=== PATIENT | male | born 1995 | race African-American/Black ===

== ENCOUNTER 2016-08-19 07:37 | Emergency (ER) | payer OTHER ==
[~2016-08-19] VITALS: Ht 167.6 cm; Wt 68.3 kg
[~2016-08-19 07:37] MED LIST: FLEXERIL10 MG PO; LEVAQUIN500 MG PO; MEDROL DOSEPAK4 MG PO; MOTRIN600 MG PO; NAPROSYN500 MG PO; NAPROXEN500 MG PO; NEBULIZER IH; NO MED; NORCO 5/3251 TABLET PO; PREDNISONE20 MG PO; PROAIR HFA8.5 GM IH; PROMETHAZINE HC25 M1 PO; VALIUM5 MG PO; VENTOLIN HFA18 GM IH; ZITHROMAX Z-PA250 MG PO; ZOFRAN ODT8 MG PO; ZOFRAN4 MG PO
[2016-08-19 09:55] LABS: EOSINOPHIL (%) 0 % (0-5); HEMATOCRIT 37.8 % (38.0-50.0); IMMATURE GRANULOCYTE (%) 0.2 % (0.0-0.7); IMMATURE GRANULOCYTE COUNT 0.1 K/uL; LYMPHOCYTE COUNT 0.6 K/uL (1.0-2.8); MCH 28.9 PG (29.0-34.0); MCHC 34.7 G/DL (30.0-36.0); MCV 83.3 FL (86-99); MEAN PLAT.VOLUME 9.8 uM^3 (9.0-12.4); MONOCYTE (%) 18.8 % (3-12); NEUTROPHIL (%) 70.9 % (45-76); NEUTROPHIL COUNT 3.9 K/uL (1.8-6.4); PLATELET COUNT 165 K/uL (156-360); RBC DIS.WIDTH-CV 13.1 % (11.8-14.6); RBC DIS.WIDTH-SD 39.2 % (39-53); RED BLOOD COUNT 4.54 M/uL (4.00-5.50); WHITE BLOOD COUNT 5.5 K/uL (4.1-10.2)
[2016-08-19 10:05] LABS: CHLORIDE 108 mEq/L (99-109)
[2016-08-19 10:06] LABS: POTASSIUM 3.4 mEq/L (3.7-5.4); SODIUM 140 mEq/L (136-147)
[2016-08-19 10:07] LABS: GLUCOSE 94 mg/dL (70-99)
[2016-08-19 10:09] LABS: ANION GAP 14 MEQ/L (2-14)
[2016-08-19 10:11] LABS: GFR ESTIMATE (CALCULATED) > 59 mL/min/
[2016-08-19 10:12] LABS: UREA NITROGEN (BUN) 10 mg/dL (9-23)
[2016-08-19 11:14] LABS: ADD MIUA? YES; BILIRUBIN NEGATIVE; BLOOD NEGATIVE; COLOR YELLOW ((YELLOW)); GLUCOSE (STRIP) NEGATIVE; KETONES 80; LEUKOCYTES NEGATIVE; NITRITE NEGATIVE; PROTEIN (STRIP) 30; SPECIFIC GRAVITY 1.029 (1.000-1.030); UROBILINOGEN 0.2 MG/DL (0.2-1.0)
[2016-08-19 11:26] LABS: BACTERIA RARE /HPF; EPITHELIAL CELLS RARE /HPF; MUCUS 2+ /LPF; RED BLOOD CELLS NONE SEEN /HPF (0-5); UCUL ADDED? NO; WHITE BLOOD CELLS 0-5 /HPF (0-5)
[2016-08-19 11:48] VITALS: BP 117/87
[2016-08-19] MEDS ORDERED: MOTRIN600 MG PO (12:16)
[2016-08-19] MEDS ORDERED: LIDOCAINE700 MG TD (12:16)
[2016-08-19] MEDS ORDERED: FLEXERIL10 MG PO (12:16)
== END 2016-08-19 12:32 | disposition home or self-care (01) ==
LOC: EME 07:37
PROVIDERS: Emergency Medicine
DX: M54.16 Radiculopathy, lumbar region (principal); M25.561 Pain in right knee; M25.562 Pain in left knee; J45.909 Unspecified asthma, uncomplicated
CPT/HCPCS: 72131; 73564; 80048; 81003; 85025; 99281; 99285; J1100; J1885; J7030

== ENCOUNTER 2017-06-04 18:52 | Emergency (ER) | payer OTHER ==
[~2017-06-04] VITALS: Ht 167.6 cm; Wt 68.6 kg
[~2017-06-04 18:52] MED LIST changes: +LIDOCAINE700 MG TD
[2017-06-04 19:17] LABS: HEMATOCRIT 42.4 % (38.0-50.0); MCH 29.6 PG (29.0-34.0); MCHC 35.4 G/DL (30.0-36.0); MCV 83.8 FL (86-99); MEAN PLAT.VOLUME 10.5 uM^3 (9.0-12.4); PLATELET COUNT 194 K/uL (156-360); RBC DIS.WIDTH-CV 12.6 % (11.8-14.6); RED BLOOD COUNT 5.06 M/uL (4.00-5.50)
[2017-06-04 19:26] LABS: CHLORIDE 105 mEq/L (99-109); POTASSIUM 3.2 mEq/L (3.7-5.4); SODIUM 140 mEq/L (136-147)
[2017-06-04 19:27] LABS: GLUCOSE 95 mg/dL (70-99)
[2017-06-04 19:29] LABS: ANION GAP 17 MEQ/L (2-14)
[2017-06-04 19:31] LABS: GFR ESTIMATE (CALCULATED) > 59 mL/min/
[2017-06-04 19:32] LABS: UREA NITROGEN (BUN) 9 mg/dL (9-23)
[2017-06-04 19:37] LABS: TROP-I INTERPRETATION NEGATIVE; TROPONIN-I < 0.01 ng/mL (0.0-0.30)
[2017-06-04 23:19] LABS: ADD MIUA? YES; BILIRUBIN NEGATIVE; BLOOD NEGATIVE; COLOR YELLOW ((YELLOW)); GLUCOSE (STRIP) NEGATIVE; KETONES 80; LEUKOCYTES NEGATIVE; NITRITE NEGATIVE; PROTEIN (STRIP) 100; SPECIFIC GRAVITY 1.031 (1.000-1.030)
[2017-06-04 23:26] LABS: BACTERIA NONE SEEN /HPF; EPITHELIAL CELLS RARE /HPF; MUCUS 2+ /LPF; WHITE BLOOD CELLS 0-5 /HPF (0-5)
[2017-06-04] MEDS ORDERED: VIBRAMYCIN100 MG PO (23:41)
[2017-06-04] MEDS ORDERED: TYLENOL WITH C1 EACH PO (23:41)
[2017-06-04] MEDS ORDERED: MOTRIN800 MG PO (23:41)
[2017-06-05 00:23] VITALS: BP 127/63
== END 2017-06-05 00:24 | disposition home or self-care (01) ==
LOC: EME 18:52
PROVIDERS: Emergency Medicine
DX: R50.9 Fever, unspecified (principal); J45.909 Unspecified asthma, uncomplicated
CPT/HCPCS: 71020; 80048; 81003; 83605; 84484; 85027; 87040; 87502; 93005; 99281; 99285; J2270

== ENCOUNTER 2017-08-31 10:39 | Emergency (ER) | payer OTHER ==
[~2017-08-31] VITALS: Ht 167.6 cm; Wt 72.7 kg
[~2017-08-31 10:39] MED LIST changes: +MOTRIN800 MG PO; +TYLENOL WITH C1 EACH PO; +VIBRAMYCIN100 MG PO
[2017-08-31 12:14] LABS: BASOPHIL (%) 0.1 % (0-1); EOSINOPHIL (%) 0 % (0-5); HEMATOCRIT 40.2 % (38.0-50.0); IMMATURE GRANULOCYTE (%) 0.3 % (0.0-0.7); LYMPHOCYTE (%) 5.1 % (15-42); LYMPHOCYTE COUNT 0.6 K/uL (1.0-2.8); MCH 29.2 PG (29.0-34.0); MCHC 34.8 G/DL (30.0-36.0); MCV 83.8 FL (86-99); NEUTROPHIL (%) 85.5 % (45-76); NEUTROPHIL COUNT 9.5 K/uL (1.8-6.4); PLATELET COUNT 169 K/uL (156-360); RBC DIS.WIDTH-CV 12.9 % (11.8-14.6); RBC DIS.WIDTH-SD 39.4 % (39-53); WHITE BLOOD COUNT 11.1 K/uL (4.1-10.2)
[2017-08-31 12:21] LABS: ALBUMIN 4.7 g/dL (3.2-4.8)
[2017-08-31 12:22] LABS: CHLORIDE 107 mEq/L (99-109); POTASSIUM 3.3 mEq/L (3.7-5.4); SODIUM 140 mEq/L (136-147)
[2017-08-31 12:24] LABS: GLUCOSE 153 mg/dL (70-99); TOTAL PROTEIN 7.4 g/dL (6.4-8.3)
[2017-08-31 12:26] LABS: TOTAL BILIRUBIN 0.9 mg/dL (0.0-1.0)
[2017-08-31 12:27] LABS: ALKALINE PHOSPHATASE 68 IU/L (3-129)
[2017-08-31 12:28] LABS: GFR ESTIMATE (CALCULATED) > 59 mL/min/ (58.99-99999)
[2017-08-31 12:29] LABS: AST (GOT) 16 IU/L (2-34); UREA NITROGEN (BUN) 11 mg/dL (9-23)
[2017-08-31 12:30] LABS: ALT (GPT) 24 IU/L (3-49)
[2017-08-31 14:35] LABS: APPEARANCE SL.HAZY ((CLEAR)); BILIRUBIN NEGATIVE; BLOOD NEGATIVE; COLOR YELLOW ((YELLOW)); GLUCOSE (STRIP) 50; KETONES 20; LEUKOCYTES NEGATIVE; NITRITE NEGATIVE; PROTEIN (STRIP) 30; SPECIFIC GRAVITY 1.026 (1.000-1.030); UROBILINOGEN 0.2 MG/DL (0.2-1.0)
[2017-08-31 14:41] LABS: BACTERIA NONE SEEN /HPF; EPITHELIAL CELLS NONE SEEN /HPF; MUCUS TRACE /LPF; RED BLOOD CELLS 0-5 /HPF (0-5); UCUL ADDED? NO; WHITE BLOOD CELLS 0-5 /HPF (0-5)
[2017-08-31] MEDS ORDERED: TORADOL10 MG PO (15:19)
[2017-08-31] MEDS ORDERED: ZOFRAN ODT4 MG PO (15:19)
[2017-08-31] MEDS ORDERED: ATARAX,VISTARIL50 MG PO (15:19)
[2017-08-31 15:31] VITALS: BP 124/57
== END 2017-08-31 15:30 | disposition home or self-care (01) ==
LOC: EME 10:39
PROVIDERS: Nurse Practitioner Family
DX: R11.2 Nausea with vomiting, unspecified (principal); F41.9 Anxiety disorder, unspecified; J45.909 Unspecified asthma, uncomplicated
CPT/HCPCS: 80053; 81003; 85025; 93005; 99281; 99285; J1885; J2060; J7030; Q0177